=== PATIENT | male | born 1980 | race Two or more races ===

== ENCOUNTER 2018-07-20 10:38 | Emergency (ER) | payer BC ==
[~2018-07-20 10:38] MED LIST: CEPH500T7 PO
--- NOTE | 2018-07-20 11:48 | ER Report ---
History and Physical Time Seen By MD: 11:46 Hx. of Stated Complaint: pt reports chest congestion, dizziness, ear pressure x 2 days, hot/cold flashes HPI/ROS CHIEF COMPLAINT: Chest congestion and cough HISTORY OF PRESENT ILLNESS: This is a 37 over presents to the emergency department for chest congestion and a cough. Patient was seen here couple weeks ago for a puncture wound to his foot, started on Keflex follow-up with his prima ry care provider, changed medications because of his chest congestion now he's supposed be taking another antibiotic which he has not started., He states that the antibiotic is for his chest congestion. Patient has sinus congestion. Some nasal discharge, postnasal drip. He does have intermittent aches and chills. Denies chest pain or shortness of breath. No rashes. No other complaints. REVIEW OF SYSTEMS: Constitutional: As above. Eyes: No discharge. ENT: As above. Cardiovascular: No chest pain, no palpitations. Respiratory: No cough, no shortness of breath. Gastrointestinal: No abdominal pain, no vomiting. Genitourinary: No hematuria. Musculoskeletal: No back pain. Skin: No rashes. Neurological: No headache. Allergies: Coded Allergies: No Known Drug Allergies (Unverified , 07/20/18) Home Meds Discontinued Scripts Cephalexin 500 Mg Tab (KEFLEX 500 MG TAB) 500 Mg Tablet, 500 MG PO Q6H, #26 TAB 0 Refills Prov:REBA QUEEN [employer]- 07/11/18 Past Medical/Surgical History The patient has a past medical and surgical history of mole removed from his head otherwise unremarkable. Reviewed Nurses Notes: Yes Hx Alcohol Use: Yes Constitutional Vital Sign - Last 24 Hours 07/20/18 07/20/18 07/20/18 07/20/18 10:53 11:08 11:10 11:15 Temp 97.1 98.1 Pulse 75 80 76 Resp 18 16 B/P (MAP) 121/91 144/96 144/96 (112) 127/89 (102) Pulse Ox 97 94 92 O2 Delivery Room Air Room Air 07/20/18 07/20/18 07/20/18 07/20/18 11:30 11:45 12:00 12:15 Pulse 68 75 66 B/P (MAP) 126/90 (102) 123/83 (96) 134/89 (104) 129/85 (100) Pulse Ox 94 96 96 07/20/18 07/20/18 07/20/18 07/20/18 12:15 12:30 12:45 13:00 Pulse 66 72 69 70 Resp 16 B/P (MAP) 124/81 (95) 122/75 (91) 112/74 (87) Pulse Ox 93 95 94 07/20/18 07/20/18 13:15 13:30 Pulse 69 74 B/P (MAP) 120/88 (99) 123/83 (96) Pulse Ox 95 94 Physical Exam General Appearance: The patient is alert, has no immediate need for airway protection and no signs of toxicity. Eyes: Pupils equal and round no pallor or injection. ENT, Mouth: Mucous membranes are moist. Erythema to the posterior oropharynx. Boggy inferior turbinates. TMs intact bilaterally, no injection, pearly mireles, landmarks noted. Respiratory: There are no retractions, lungs are clear to auscultation. Cardiovascular: Regular rate and rhythm. Gastrointestinal: Abdomen is soft and non tender, no masses, bowel sounds normal. Neurological: Alert and oriented 4. Moving all extremities. Following all commands. No focal neuro deficits. Skin: Warm and dry, no rashes. Musculoskeletal: Neck is supple non tender. Extremities are nontender, nonswollen and have full range of motion. DIFFERENTIAL DIAGNOSIS: After history and physical exam differential diagnosis was considered for influenza, viral syndrome, sinusitis, bronchitis and pneumonia. Medical Decision Making EKG/Imaging Imaging Location: [facility] Patient: Severino Driver : 1980 Visit/Account:[id number] [facility] 2 VIEWS CHEST INDICATION: Cough for two weeks COMPARISON: None available FINDINGS: Heart size within normal limits. Lungs are clear. There is no pneumothorax or pleural effusion. No acute bony finding IMPRESSION: 1. No acute cardiopulmonary process. Report Dictated By: Bigg Munoz MD at 07/20/2018 12:57 PM Report E-Signed By: Bigg Munoz MD at 07/20/2018 12:58 PM WSN:[facility] ED Course/Re-evaluation ED Course The patient was admitted to a room. A history and physical were obtained. Differential diagnoses were considered. A two-view chest x-ray was negative for any acute cardiopulmonary process. A DuoNeb did seem to improve the patient overall feeling. I did review the x-ray results with the patient. I did tell him that this is likely a viral type of illness these can take several weeks to pass. I did recommend plenty of fluids, taking ibuprofen or Tylenol as needed for his aches and pains. Lots of handwashing. He also has 2 children at home that are ill with colds. I also recommended nasal sprays and/or a passive nasal rinse. Follow-up with his primary care provider within a week if no improvement return to the ER for any other concerns or worsening symptoms. Patient was in agreement with this plan of care and discharged home. Decision to Disposition Date: Jul 20, 2018 Decision to Disposition Time: 13:40 Depart Departure Latest Vital Signs Vital Signs Date Time Temp Pulse Resp B/P (MAP) Pulse Ox O2 Delivery O2 Flow Rate FiO2 07/20/18 13:30 74 123/83 (96) 94 07/20/18 12:15 16 07/20/18 11:08 98.1 Room Air Impression: Primary Impression: Viral syndrome Condition: Improved Disposition: HOME OR SELF-CARE Referrals: NISHA CHEN DO (PCP) New Scripts No Active Prescriptions or Reported Meds Patient Instructions: Viral Syndrome (ED) Additional Instructions: I believe you have a viral illness, these can take weeks to resolve. I would recommend trying some ihav-xix-xezhahk nasal sprays such as Flonase or a passive nasal rinse like a Sharda pot. You can try taking a Zyrtec or Claritin once a day for at least 1 week to see if this helps with her symptoms. Lots of handwashing. Drink plenty of water. Get plenty of rest. Take ibuprofen or Tylenol as needed for pain. Follow-up with your primary care provider as needed. Return to the emergency department for any concerns or worsening symptoms. REBA QUEENP-BC Jul 20, 2018 11:48
[2018-07-20] MEDS ORDERED: ALBUTEROL/IPRATROPIUM 3 ML NEB NEB ONE (12:00)
--- NOTE | 2018-07-20 13:02 | RADIOLOGY IMAGING REPORT ---
FACILITY: [facility] [place] PATIENT NAME: Severino Driver : 1980 MR: [id number] V: [id number] EXAM DATE: ORDERING PHYSICIAN: REBA QUEEN TECHNOLOGIST: Location: [facility] [place] Patient: Severino Driver : 1980 Visit/Account:[id number] Date of Sevice: 07/20/2018 2 VIEWS CHEST INDICATION: Cough for two weeks COMPARISON: None available FINDINGS: Heart size within normal limits. Lungs are clear. There is no pneumothorax or pleural effusion. No acute bony finding IMPRESSION: 1. No acute cardiopulmonary process. Report Dictated By: Bigg Munoz MD at 07/20/2018 12:57 PM Report E-Signed By: Bigg Munoz MD at 07/20/2018 12:58 PM WSN:[id number]
[2018-07-20 13:30] VITALS: BP 123/83
== END 2018-07-20 13:50 | disposition home or self-care (01) ==
LOC: ER 11:31
DX: B34.9 Viral infection, unspecified (principal)
CPT/HCPCS: 71046; 94640; 99283; J7620

== ENCOUNTER → 2018-09-16 | Outpatient (CLI) | payer BC ==
--- NOTE | 2018-09-16 15:45 | RADIOLOGY IMAGING REPORT ---
FACILITY: [facility] - [place] PATIENT NAME: Severino Driver : 1980 MR: [id number] V: [id number] EXAM DATE: ORDERING PHYSICIAN: RHODA BOWSER TECHNOLOGIST: [place] [facility] [place] Severino Driver : 1980 Visit/Account:[id number] Date of Sevice: 09/16/2018 3 views right ankle INDICATION: Pain COMPARISON: None Available FINDINGS: No evidence of fracture, dislocation, or acute osseous abnormality of the right ankle. The ankle mortise is symmetric. On the AP view arising from the medial malleolus is a small calcific ation which may represent calcified ligamentous insertion or old avulsion fracture. There is no significant ankle joint effusion. There is no focal soft tissue abnormality. No evidence of radiopaque foreign body. IMPRESSION: 1. No acute osseous abnormality of the right ankle Report Dictated By: Vikash Murphy at 09/16/2018 3:40 PM Report E-Signed By: Vikash Murphy at 09/16/2018 3:41 PM WSN:[id number]
--- NOTE | 2018-09-16 15:52 | RADIOLOGY IMAGING REPORT ---
[place] [facility] [place] NAME: Severino Driver : 1980 MR: [id number] V: [id number] EXAM DATE: ORDERING PHYSICIAN: RHODA BOWSER TECHNOLOGIST: Location: [facility] Patient: Severino Driver : 1980 Visit/Account:[id number] Date of Sevice: 09/16/2018 CERVICAL SPINE W/OBL F/E Indication: Chronic pain, no injury, Comparison: None available. Findings: The prevertebral soft tissues are within normal limits. The vertebral body heights are well maintained. There is straightening of the normal cervical lordosis. No significant spondylosis is identified. N o spondylolisthesis is seen. Oblique views demonstrate mild bilateral neural foraminal narrowing at C3-4. The remainder of the neural foramina appear widely patent. With flexion and extension no sheila nesha instability is seen. IMPRESSION: 1. Mild bilateral neural foraminal narrowing at C3-4 otherwise negative cervical spine Report Dictated By: Vikash Murphy at 09/16/2018 3:45 PM Report E-Signed By: Vikash Murphy at 09/16/2018 3:46 PM WSN:[email or web address]
== END ==
LOC: RAD 14:25
PROVIDERS: ATTEND Chiropractor
DX: M54.2 Cervicalgia (principal)
CPT/HCPCS: 72052